=== PATIENT | male | born 1955 | race Caucasian/White ===

== ENCOUNTER 2019-07-30 05:12 | Emergency (ER) | payer OTHER ==
[2019-07-30] MEDS ORDERED: NA CHLORIDE 0.9% 1,000 ML ONE (05:57)
[2019-07-30 06:00] LABS: Absolute Lymphocytes (CBC) 0.9 K/uL (0.7-4.9); Basophils % 0.5 % (0-1.3); Hematocrit 43.5 % (39.6-49.0); Lymphocytes % 12.9 % (15.3-44.8); RBC Red Blood Cell Count 4.93 M/uL (4.33-5.43)
[2019-07-30] MEDS ORDERED: KETOROLAC 30 MG/ML INJ ONE (06:05)
[2019-07-30] MEDS ORDERED: ONDANSETRON 4 MG/2 ML VIAL ONE (06:05)
[2019-07-30] MEDS ORDERED: MORPHINE 2 MG/ML SYR ONE (06:05)
[2019-07-30] MEDS ORDERED: TAMSULOSIN 0.4 MG SR CAP ONE (06:22)
[2019-07-30] MEDS ORDERED: WATER FOR INJ,STERILE 10 ML ONE (06:23)
[2019-07-30] MEDS ORDERED: CEFTRIAXONE 1000 MG/VIAL ONE (06:23)
[2019-07-30 06:25] LABS: Albumin 3.7 g/dL (3.4-5.0); Bilirubin Direct 0.1 mg/dL (0-0.2); Bilirubin Total 0.5 mg/dL (0.2-1.0); Potassium 4.1 mmol/L (3.5-5.1); Protein, Total 6.5 g/dL (6.4-8.2)
--- NOTE | 2019-07-30 08:34 | RAD REPORT ---
EXAM DESCRIPTION: CT - Stone Protocol - 07/30/2019 8:06 am CLINICAL HISTORY: ABD PAIN, pain radiates to the left lower quadrant COMPARISON: No comparisons TECHNIQUE: Axial 5 mm thick images were obtained without oral or IV contrast. The [id number] span s the entirety of the system including uppermost abdomen and lung bases. All CT scans are performed using dose optimization technique as appropriate and may include automated exposure control or mA/KV adjustment according to patient size. FINDINGS: No hydronephrosis is present and no obstructing ureteral calculi. No suspicious renal mass es. Isodense masses and pyelonephritis are not excluded on a stone protocol CT scan. Urinary bladder is tightly contracted limiting detail. No assessment can be accurately made. Prostate gland and semin al vesicles are normal range. No significant adrenal finding. Small phleboliths are present along the pelvic floor. Imaged portions of the liver, spleen and pancreas show no suspicious findings on non-contrast imaging . No gallbladder or biliary tree abnormality identified. Benign hepatic cyst present. No suspicious bowel findings. No hernia, mass or bulky lymphadenopathy noted. No free air, free fluid or inflammatory stranding. No significant bony abnormality. Central canal detail is limited. No gross evidence for disc herniati on. IMPRESSION: No hydronephrosis, obstructing calculus or acute finding identifiable. No acute findings seen on this study. Isodense masses and pyelonephritis are not excluded on stone protocol technique.Overall exam has limi tation due to the absence of oral and IV contrast.
[2019-07-30 09:00] LABS: Urine Blood 3+ (NEG); Urine Glucose NEGATIVE (NEG); Urine Protein 2+ (NEG); Urine Specific Gravity 1.025 (1.005-1.030); Urine pH 5.5 (5.0-7.0)
--- NOTE | 2019-07-30 09:18 | EDPHYS ---
Physician Documentation [facility] Name: Smith Orr Age: 64 yrs Sex: Male : 1955 Arrival Date: 07/30/2019 Time: 05:18 Bed 15 Private MD: FERN Physician Nithin Kennedy HPI: 07/30 06:00 This 64 yrs old Male presents to ER via Ambulatory with complaints of antoinette Possible Kidney Stone. 06:00 The patient complains of pain in the left low back and left mid back. The pain radiates antoinette to the left low back and left mid back. Onset: The symptoms/episode began/occurred last night. Modifying factors: The symptoms are alleviated by nothing. the symptoms are aggravated by nothing. The patient presents with pain that is acute, with no known mechanism of injury. The symptoms are located in the left low back and left mid back. Onset: The symptoms/episode began/occurred just prior to arrival, this morning. Associated signs and symptoms: The patient has no apparent associated signs or symptoms. Historical: - Allergies: 05:37 No Known Allergies; - Home Meds: 05:37 Unable to obtain [Active]; - PMHx: 05:37 High Cholesterol; Prostate Enlargement; Heart Stents; GERD; [facility] PSHx: 05:37 Appendectomy; - Immunization history:: Adult Immunizations up to date, Flu vaccine is up to date. - Coronavirus screen:: The patient has NOT traveled to [place], [place], or [place] in the past 14 days. - Social history:: Smoking status: Patient/guardian denies using. - Family history:: not pertinent. - Ebola Screening: : Patient negative for fever greater than or equal to 101.5 degrees Fahrenheit, and additional compatible Ebola Virus Disease symptoms Patient denies exposure to infectious person. ROS: 06:00 Constitutional: Negative for fever, chills, and weight loss, Eyes: Negative for injury, antoinette pain, redness, and discharge, ENT: Negative for injury, pain, and discharge, Neck: Negative for injury, pain, and swelling, Cardiovascular: Negative for chest pain, palpitations, and edema, Respiratory: Negative for shortness of breath, cough, wheezing, and pleuritic chest pain, Abdomen/GI: Negative for abdominal pain, nausea, vomiting, diarrhea, and constipation, : Negative for injury, bleeding, discharge, and swelling, MS/Extremity: Negative for injury and deformity, Skin: Negative for injury, rash, and discoloration, Neuro: Negative for headache, weakness, numbness, tingling, and seizure, Psych: Negative for depression, anxiety, suicide ideation, homicidal ideation, and hallucinations, Allergy/Immunology: Negative for hives, rash, and allergies, Endocrine: Negative for neck swelling, polydipsia, polyuria, polyphagia, and marked weight changes, Hematologic/Lymphatic: Negative for swollen nodes, abnormal bleeding, and unusual bruising. 06:00 Back: Positive for pain at rest, flank pain, on the left. Exam: 06:00 Constitutional: This is a well developed, well nourished patient who is awake, alert, antoinette and in no acute distress. Head/Face: Normocephalic, atraumatic. Eyes: Pupils equal round and reactive to light, extra-ocular motions intact. Lids and lashes normal. Conjunctiva and sclera are non-icteric and not injected. Cornea within normal limits. Periorbital areas with no swelling, redness, or edema. ENT: Nares patent. No nasal discharge, no septal abnormalities noted. Tympanic membranes are normal and external auditory canals are clear. Oropharynx with no redness, swelling, or masses, exudates, or evidence of obstruction, uvula midline. Mucous membranes moist. Neck: Trachea midline, no thyromegaly or masses palpated, and no cervical lymphadenopathy. Supple, full range of motion without nuchal rigidity, or vertebral point tenderness. No Meningismus. Chest/axilla: Normal chest wall appearance and motion. Nontender with no deformity. No lesions are appreciated. Cardiovascular: Regular rate and rhythm with a normal S1 and S2. No gallops, murmurs, or rubs. Normal PMI, no JVD. No pulse deficits. Respiratory: Lungs have equal breath sounds bilaterally, clear to auscultation and percussion. No rales, rhonchi or wheezes noted. No increased work of breathing, no retractions or nasal flaring. Abdomen/GI: Soft, non-tender, with normal bowel sounds. No distension or tympany. No guarding or rebound. No evidence of tenderness throughout. Male : Normal genitalia with no discharge or lesions. Skin: Warm, dry with normal turgor. Normal color with no rashes, no lesions, and no evidence of cellulitis. MS/ Extremity: Pulses equal, no cyanosis. Neurovascular intact. Full, normal range of motion. Neuro: Awake and alert, GCS 15, oriented to person, place, time, and situation. Cranial nerves II-XII grossly intact. Motor strength 5/5 in all extremities. Sensory grossly intact. Cerebellar exam normal. Normal gait. Psych: Awake, alert, with orientation to person, place and time. Behavior, mood, and affect are within normal limits. 06:00 Back: pain, that is moderate, ROM is painful, normal spinal alignment noted, CVA tenderness, that is mild, is noted on the left, vertebral tenderness, is not appreciated, muscle spasm, is appreciated in the left low back and left mid back. Vital Signs: 05:43 BP 90 / 66; Pulse 64; Resp 18; Temp 97.6; Pulse Ox 99% ; Weight 113.4 kg; Height 5 ft. wh 11 in. (180.34 cm); Pain 9/10; 06:45 BP 118 / 74; Pulse 70; Resp 18; Pulse Ox 99% ; wh 08:00 BP 121 / 76; Pulse 70; Resp 17; Pulse Ox 95% ; bp 09:24 BP 114 / 66; Pulse 64; Resp 16; Temp 97.8; Pulse Ox 96% ; bp 05:43 Body Mass Index 34.87 (113.40 kg, 180.34 cm) MDM: 05:24 Patient medically screened. [facility] 06:02 Data reviewed: vital signs, nurses notes, lab test result(s), radiologic studies, CT antoinette scan. 07/30 05:35 Order name: Basic Metabolic Panel; Complete Time: 06:30 [facility] 07/30 05:35 Order name: CBC with Diff; Complete Time: 06:30 [facility] 07/30 05:35 Order name: Creatinine for Radiology; Complete Time: 06:30 [facility] 07/30 05:35 Order name: Hepatic Function; Complete Time: 06:30 [facility] 07/30 05:35 Order name: Lipase; Complete Time: 06:30 [facility] 07/30 05:35 Order name: Urine Culture [facility] 07/30 05:35 Order name: CT Stone Protocol; Complete Time: 08:43 [facility] 07/30 06:50 Order name: Urine Dipstick--Ancillary (enter results); Complete Time: 09:15 07/30 05:35 Order name: IV Saline Lock; Complete Time: 05:56 [facility] 07/30 05:35 Order name: Labs collected and sent; Complete Time: 05:56 [facility] 07/30 05:35 Order name: Urine Dipstick-Ancillary (obtain specimen); Complete Time: 06:49 [facility] Administered Medications: 05:56 Drug: NS 0.9% 1000 ml Route: IV; Rate: 1 bolus; Site: right forearm; 06:53 Follow up: Response: No adverse reaction; IV Status: Completed infusion 06:01 Drug: morphine 2 mg Route: IVP; Site: right forearm; 06:51 Follow up: Response: No adverse reaction; Pain is increased; RASS: Alert and Calm (0) 06:03 Drug: TORadol 30 mg Route: IVP; Site: right forearm; 06:52 Follow up: Response: No adverse reaction; Pain is decreased 06:05 Drug: Zofran 4 mg Route: IVP; Site: right forearm; 06:52 Follow up: Response: No adverse reaction; Nausea is decreased 06:22 Drug: Flomax 0.4 mg Route: PO; 06:51 Follow up: Response: No adverse reaction 06:22 Drug: Rocephin 1 grams Route: IV; Rate: per protocol; Site: right forearm; 06:53 Follow up: Response: No adverse reaction; IV Status: Completed infusion Disposition: 07/30/19 09:15 Discharged to Home. Impression: Hydronephrosis with renal and ureteral calculous obstruction. - Condition is Stable. - Discharge Instructions: Kidney Stones, Kidney Stones, [id number], Hydronephrosis, Dietary Guidelines to Help Prevent Kidney Stones. - Prescriptions for Tylenol- Codeine #3 300-30 mg Oral Tablet - take 2 tablet by ORAL route every 6 hours As needed; 30 tablet. Zofran 4 mg Oral Tablet - take 1 tablet by ORAL route every 12 hours As needed; 20 tablet. Flomax 0.4 mg Oral Capsule, Sust. Release 24 hr - take 1 capsule by ORAL route once daily 1/2 hour following the same meal each day; 30 capsule. Cipro 500 mg Oral Tablet - take 1 tablet by ORAL route every 12 hours for 7 days; 14 tablet. - Medication Reconciliation Form, Thank You Letter, Antibiotic Education, Prescription Opioid Use form. - Follow up: Private Physician; When: 2 - 3 days; Reason: Recheck today's complaints, Continuance of care, Re-evaluation by your physician. Follow up: Daniel Liu; When: 2 - 3 days; Reason: Recheck today's complaints, Continuance of care, Re-evaluation by your physician. - Problem is new. - Symptoms have improved. Signatures: Dispatcher [employer] EDNithin Ryan, Dulce Alonzo MD, cha, MADHU-C RESIDENT INSPECTOR-Toro Kinney Brian, RN RN bp Corrections: (The following items were deleted from the chart) 09:27 09:15 07/30/2019 09:15 Discharged to Home. Impression: Hydronephrosis with renal and bp ureteral calculous obstruction. Condition is Stable. Discharge Instructions: Kidney Stones, Kidney Stones, [id number], Hydronephrosis, Dietary Guidelines to Help Prevent Kidney Stones. Prescriptions for Tylenol-Codeine #3 300-30 mg Oral Tablet - take 2 tablet by ORAL route every 6 hours As needed; 30 tablet, Zofran 4 mg Oral Tablet - take 1 tablet by ORAL route every 12 hours As needed; 20 tablet, Flomax 0.4 mg Oral Capsule, Sust. Release 24 hr - take 1 capsule by ORAL route once daily 1/2 hour following the same meal each day; 30 capsule, Cipro 500 mg Oral Tablet - take 1 tablet by ORAL route every 12 hours for 7 days; 14 tablet. and Forms are Medication Reconciliation Form, Thank You Letter, Antibiotic Education, Prescription Opioid Use. Follow up: Private Physician; When: 2 - 3 days; Reason: Recheck today's complaints, Continuance of care, Re-evaluation by your physician. Follow up: Daniel Liu; When: 2 - 3 days; Reason: Recheck today's complaints, Continuance of care, Re-evaluation by your physician. Problem is new. Symptoms have improved. snw
--- NOTE | 2019-07-30 09:18 | ER ---
Nurse's Notes [facility] Name: Smith Orr Age: 64 yrs Sex: Male : 1955 Arrival Date: 07/30/2019 Time: 05:18 Bed 15 Private MD: Diagnosis: Hydronephrosis with renal and ureteral calculous obstruction Presentation: 07/30 05:34 Presenting complaint: Patient states: Woke up at midnight from back pain radiating to LLQ. Pt states Hx of kidney stones, Pt states took Tylenol#3 with some relief. Transition of care: patient was not received from another setting of care. Onset of symptoms was July 30, 2019. Risk Assessment: Do you want to hurt yourself or someone else? Patient reports no desire to harm self or others. Initial Sepsis Screen: Does the patient meet any 2 criteria? No. Patient's initial sepsis screen is negative. Does the patient have a suspected source of infection? No. Patient's initial sepsis screen is negative. Care prior to arrival: None. 05:34 Method Of Arrival: Ambulatory 05:34 Acuity: JING 3 Historical: - Allergies: 05:37 No Known Allergies; - Home Meds: 05:37 Unable to obtain [Active]; - PMHx: 05:37 High Cholesterol; Prostate Enlargement; Heart Stents; GERD; - PSHx: 05:37 Appendectomy; - Immunization history:: Adult Immunizations up to date, Flu vaccine is up to date. - Coronavirus screen:: The patient has NOT traveled to [place], [place], or [place] in the past 14 days. - Social history:: Smoking status: Patient/guardian denies using. - Family history:: not pertinent. - Ebola Screening: : Patient negative for fever greater than or equal to 101.5 degrees Fahrenheit, and additional compatible Ebola Virus Disease symptoms Patient denies exposure to infectious person. Screenin:38 Abuse screen: Denies threats or abuse. Denies injuries from another. Nutritional screening: No deficits noted. Tuberculosis screening: No symptoms or risk factors identified. Fall Risk None identified. IV access (20 points). Assessment: 05:41 General: Appears in no apparent distress. Behavior is calm, cooperative, appropriate for age. Pain: Complains of pain in lower back Pain radiates to left lower quadrant Pain currently is 8 out of 10 on a pain scale. Quality of pain is described as pressure, Pain began 4 hours ago. Neuro: Level of Consciousness is awake, alert, obeys commands, Oriented to person, place, time, situation, Appropriate for age. Cardiovascular: Heart tones S1 S2. Respiratory: Airway is patent Respiratory effort is even, unlabored, Respiratory pattern is regular, symmetrical. GI: Abdomen is flat, non-distended, Bowel sounds present X 4 quads. Abd is soft and non tender X 4 quads. : No signs and/or symptoms were reported regarding the genitourinary system. EENT: No signs and/or symptoms were reported regarding the EENT system. Derm: Skin is intact, is healthy with good turgor, Skin is pink, warm \T\ dry. normal. Musculoskeletal: Circulation, motion, and sensation intact. 06:50 Reassessment: Patient appears in no apparent distress at this time. No changes from previously documented assessment. Patient and/or family updated on plan of care and expected duration. Pain level reassessed. Patient is alert, oriented x 3, equal unlabored respirations, skin warm/dry/pink. 07:00 Reassessment: pt to restroom. sg 07:16 Reassessment: pt to restroom. sg 07:35 Reassessment: Patient appears in no apparent distress at this time. pt to restroom. sg 09:24 Reassessment: PT D/C HOME AMBULATORY, DX WITH KIDNEY STONES AND HYDRONEPHROSIS. bp Vital Signs: 05:43 BP 90 / 66; Pulse 64; Resp 18; Temp 97.6; Pulse Ox 99% ; Weight 113.4 kg; Height 5 ft. 11 in. (180.34 cm); Pain 9/10; 06:45 BP 118 / 74; Pulse 70; Resp 18; Pulse Ox 99% ; wh 08:00 BP 121 / 76; Pulse 70; Resp 17; Pulse Ox 95% ; bp 09:24 BP 114 / 66; Pulse 64; Resp 16; Temp 97.8; Pulse Ox 96% ; bp 05:43 Body Mass Index 34.87 (113.40 kg, 180.34 cm) ED Course: 05:18 Patient arrived in ED. cl3 05:24 Nithin Kennedy MD is Attending Physician. antoinette 05:33 Toro Kathleen is Primary Nurse. 05:35 Triage completed. 05:43 Arm band placed on right wrist. wh 05:43 Patient has correct armband on for positive identification. Bed in low position. Call light in reach. Side rails up X 1. Pulse ox on. NIBP on. 07:32 Dulce Blair FNP-C is PHCP. snw 08:09 CT Stone Protocol In Process Unspecified. EDMS 09:15 Daniel Liu MD is Referral Physician. snw 09:25 No provider procedures requiring assistance completed. IV discontinued, intact, bp bleeding controlled, No redness/swelling at site. Pressure dressing applied. Administered Medications: 05:56 Drug: NS 0.9% 1000 ml Route: IV; Rate: 1 bolus; Site: right forearm; wh 06:53 Follow up: Response: No adverse reaction; IV Status: Completed infusion 06:01 Drug: morphine 2 mg Route: IVP; Site: right forearm; wh 06:51 Follow up: Response: No adverse reaction; Pain is increased; RASS: Alert and Calm (0) wh 06:03 Drug: TORadol 30 mg Route: IVP; Site: right forearm; wh 06:52 Follow up: Response: No adverse reaction; Pain is decreased wh 06:05 Drug: Zofran 4 mg Route: IVP; Site: right forearm; wh 06:52 Follow up: Response: No adverse reaction; Nausea is decreased wh 06:22 Drug: Flomax 0.4 mg Route: PO; wh 06:51 Follow up: Response: No adverse reaction 06:22 Drug: Rocephin 1 grams Route: IV; Rate: per protocol; Site: right forearm; wh 06:53 Follow up: Response: No adverse reaction; IV Status: Completed infusion Outcome: 09:15 Discharge ordered by . snw 09:26 Discharged to home ambulatory. bp 09:26 Condition: stable 09:26 Discharge instructions given to patient, Instructed on discharge instructions, follow up and referral plans. medication usage, Demonstrated understanding of instructions, follow-up care, medications, Prescriptions given X 4. 09:27 Patient left the ED. bp Signatures: Dispatcher [employer] EDMI Flo Polo RN RN sg Anderson, Corey, MD MD cha Therrien, Shelly, FNP-C FNP-Csnw Toro Kathleen Brian, RN RN bp Daniel Lamar cl3
[2019-07-30 09:53] VITALS: BP 114/66; TEMP 97.8; O2SAT 96
== END 2019-07-30 09:27 | disposition home or self-care (01) ==
LOC: ER 05:12
DX: N13.2 Hydronephrosis with renal and ureteral calculous obstruction (principal); Z95.818 Presence of other cardiac implants and grafts
CPT/HCPCS: 96365; 87088; 85025; 80048; 36415; 80076; 81003; 83690; 76377; 74176; 96375; 99284; J2270; J7030; J2405; 87086